=== PATIENT | female | born 1990 | race Caucasian/White ===

== ENCOUNTER 2020-01-17 14:48 | Emergency (ER) | payer MEDICAID ==
[~2020-01-17] VITALS: Ht 160 cm; Wt 56.0 kg
[2020-01-17] MEDS ORDERED: MORPHINE SULFATE 4 MG/ML CPJ (NOT FOR IM USE) IV STA (15:45)
[2020-01-17] MEDS ORDERED: SODIUM CHLORIDE 0.9% 1,000 ML IV ONE (15:45)
[2020-01-17] MEDS ORDERED: ONDANSETRON HCL 4MG/2ML INJ IV STA (15:45)
[2020-01-17 16:08] LABS: BASOPHILS % 0.8 % (0.0-2.0); EOSINOPHILS % 0.2 % (0.0-5.0); HEMATOCRIT. 39.4 % (36.0-48.0); HEMOGLOBIN. 13.3 g/dL (12.0-16.0); LYMPHOCYTES % 9.4 % (20.0-50.0); MEAN CORPUSCULAR HEMOGLOBIN 30.7 pg (28.0-32.0); MEAN CORPUSCULAR VOLUME 90.9 fL (81.0-99.0); MEAN PLATELET VOLUME 9.6 fl (7.4-10.4); MONOCYTES % 5.2 % (2.0-8.0); NEUTROPHILS % 84.4 % (40.0-76.0); PLATELET 260 x1000/uL (130-400); RED BLOOD CELL COUNT 4.34 mill/uL (4.2-5.4); RED CELL DISTRIBUTION WIDTH 12.8 % (11.6-14.6)
[2020-01-17 16:13] LABS: PROTHROMBIN TIME 10.6 sec (9.6-11.0)
[2020-01-17 16:14] LABS: CHLORIDE 108 mEq/L (98-107)
[2020-01-17 16:18] LABS: HCG SCREEN NEGATIVE
[2020-01-17 16:52] LABS: CLARITY URINE CLEAR (CLEAR); COLOR URINE YELLOW (YELLOW); KETONES URINE NEGATIVE (NEGATIVE); LEUKOCYTE ESTERASE URINE NEGATIVE (NEGATIVE); NITRITE URINE NEGATIVE (NEGATIVE); OCCULT BLOOD URINE NEGATIVE (NEGATIVE); PH URINE 7.5 (4.5-8.0); PROTEIN URINE 1+ (NEGATIVE); SPECIFIC GRAVITY URINE 1.019 (1.005-1.030); UROBILINOGEN URINE 0.2 E.U./dL (0.2-1.0)
[2020-01-17] MEDS ORDERED: IOHEXOL-300 100 ML BOTTLE ONE (17:02)
[2020-01-17 18:16] VITALS: BP 119/76
== END 2020-01-17 18:18 | disposition home or self-care (01) ==
LOC: ER 14:48
DX: S09.8XXA Other specified injuries of head, initial encounter (principal); S39.81XA Other specified injuries of abdomen, initial encounter; M54.2 Cervicalgia; V43.52XA Car driver injured in collision with other type car in traffic accident, initial encounter; Y93.89 Activity, other specified; Y92.410 Unspecified street and highway as the place of occurrence of the external cause
CPT/HCPCS: 36415; 70450; 71260; 72125; 74177; 80053; 81003; 81025; 83690; 84703; 85025; 85610; 86850; 86900; 86901; 93005; 96361; 96374; 96375; 99285; J2270; J2405; J7030; Q9967

== ENCOUNTER 2021-07-11 16:51 | Emergency (ER) | payer MEDICAID ==
[~2021-07-11] VITALS: Ht 157.5 cm; Wt 54.0 kg
[2021-07-11] MEDS ORDERED: IBUPROFEN 600MG TABLET PO ONE (17:30)
[2021-07-11 18:04] VITALS: BP 125/96
== END 2021-07-11 19:26 | disposition home or self-care (01) ==
LOC: ER 16:51
DX: M25.512 Pain in left shoulder (principal); V43.62XA Car passenger injured in collision with other type car in traffic accident, initial encounter; Y93.89 Activity, other specified; Y92.488 Other paved roadways as the place of occurrence of the external cause
CPT/HCPCS: 73030; 99283